=== PATIENT | female | born 1950 | race Two or more races ===

== ENCOUNTER 2018-04-30 08:53 | Emergency (ER) | payer OTHER ==
[~2018-04-30] VITALS: Ht 152.4 cm; Wt 88.5 kg
[~2018-04-30 08:53] MED LIST: ACCUNEB1.25 MG/3 IH; CARAFATE1 G; CARDURA8 MG; CARTIA XT120 MG; CATAPRES0.1 MG PO; COLACE100 MG; COZAAR50 MG; ESTAZOLAM2 MG; IMDUR60 MG; KLONOPIN0.5 MG/TAB PO; LEVOXYL50 MCG PO; LOPRESSOR25 MG PO; PRAVACHOL10 MG; PRILOSEC20 MG; SINGULAIR10 MG; ZANTAC150 M1; ZOCOR40 MG
== END 2018-04-30 12:49 | disposition home or self-care (01) ==
LOC: ER 08:53
DX: J45.901 Unspecified asthma with (acute) exacerbation (principal); B34.9 Viral infection, unspecified